=== PATIENT | male | born 1980 | race African-American/Black ===

== ENCOUNTER 2016-09-01 20:05 | Emergency (ER) | payer OTHER ==
[2016-09-01 20:18] VITALS: BP 149/79; PULSE 91; TEMP 98.6; BMI 28.6
--- NOTE | 2016-09-01 21:45 | PDOC ---
History of Present Illness - General Chief Complaint: Injury Stated Complaint: LT ANKLE INJURY Time Seen by Provider: 09/01/16 20:31 History Source: Patient Exam Limitations: No Limitations - History of Present Illness Initial Comments: 09/01/16 21:41 Chief complaint: Ankle injury Patient is a healthy 35-year-old male who states that he was playing basketball yesterday and someone hit his left ankle injuring it. Patient was ambulatory but limping. Ankle is more swollen today. GENERAL/CONSTITUTIONAL: No fever, weakness. dizziness HEAD, EYES, EARS, NOSE AND THROAT: No change in vision. No ear pain or discharge. No sore throat. CARDIOVASCULAR: No chest pain RESPIRATORY: No shortness of breath or cough GASTROINTESTINAL: No pain, nausea, vomiting, diarrhea or constipation GENITOURINARY: No dysuria MUSCULOSKELETAL: No neck or back pain, + left ankle SKIN: No rash NEUROLOGIC: No headache, vertigo, loss of consciousness, or loss of sensation. GENERAL: The patient is awake, alert, and fully oriented, in no acute distress. HEAD: Normal with no signs of trauma. EYES: Pupils equal, round and reactive to light, sclera anicteric, conjunctiva clear. ENT: pharynx: no erythema, no exudate, uvula midline NECK: supple CHEST: clear, nontender, rr ABD: soft, nontender EXTREMITIES: Left ankle mild swelling, no deformity, some mild tenderness at the lateral mid lower leg, no deformity or discoloration, foot no swelling or tenderness, full range of motion, neurovascular intact. Other extremities, normal range of motion, no edema. NEUROLOGICAL: Normal speech, interacting well SKIN: Warm, Dry Past History - Past Medical History Allergies/Adverse Reactions: Allergies Allergy/AdvReac Type Severity Reaction Status Date / Time No Known Allergies Allergy Verified 09/01/16 20:16 Home Medications: Ambulatory Orders NK [No Known Home Medication] 09/01/16 Other medical history: denies - Immunization History Immunization Up to Date: Yes - Psycho/Social/Smoking Cessation Hx Suicidal Ideation: No Smoking History: Never smoked Hx Alcohol Use: No Drug/Substance Use Hx: No *Physical Exam - Vital Signs Last Vital Signs Temp Pulse Resp BP Pulse Ox 98.6 F 91 H 18 149/79 98 09/01/16 20:17 09/01/16 20:17 09/01/16 20:17 09/01/16 20:17 09/01/16 20:17 Procedures - Splinting Splint Location: Left: Ankle Pre-Proc Neuro Vasc Exam: normal Pre-Made Type: velcro Post-Proc Neuro Vasc Exam: normal [place] Bandage: no Sling: No Complications: No Post splint xray: No ED Treatment Course - RADIOLOGY Radiology Studies Ordered: Category Date Time Status ANKLE-LEFT [RAD] Stat Radiology 09/01/16 20:41 Taken LEG TIB/FIB-LEFT [RAD] Stat Radiology 09/01/16 20:41 Taken Medical Decision Making - Medical Decision Making 09/01/16 21:41 [id number] *DC/Admit/Observation/Transfer Diagnosis at time of Disposition: Left ankle injury Qualifiers: Encounter type: initial encounter Qualified Code(s): S99.912A - Unspecified injury of left ankle, initial encounter - Discharge Dispostion Disposition: HOME Condition at time of disposition: Stable Admit: No - Referrals Referrals: Cristina Giles MD [Primary Care Provider] - Earl Wang MD [Staff Physician] - - Patient Instructions Printed Discharge Instructions: DI for Ankle Sprain Additional Instructions: Elevate, wear splint You can apply ice for 20 minutes every 2 hours for the next 2 days Motrin 600 mg every 6 hours for pain. Call the orthopedist tomorrow
== END 2016-09-01 21:47 | disposition home or self-care (01) ==
LOC: JERFT 20:05
PROC: 2W3MX1Z Immobilization of Left Lower Extremity using Splint (ICD-10-PCS; principal; 2016-09-01)
DX: S99.812A Other specified injuries of left ankle, initial encounter (principal); W51.XXXA Accidental striking against or bumped into by another person, initial encounter; Y93.67 Activity, basketball; Y92.310 Basketball court as the place of occurrence of the external cause; Y99.8 Other external cause status
CPT/HCPCS: 29515; 73590-TC-LT; 73610-TC-LT; 99281-25